=== PATIENT | female | born 1985 | race Caucasian/White ===

== ENCOUNTER 2019-10-26 21:21 | Observation (INO) | payer OTHER, SELFPAY ==
[2019-10-27 01:14] VITALS: BMI 32.9
--- NOTE | 2019-10-27 01:18 | OBADM ---
This patient, Alfonso Rojas, admitted to the OB room Labor/Delivery/Recovery 105 for observation. Patient/family oriented to hospital policies and general routines including ID bracelet, bed and alarms, visiting hours, pain management, procedures, bathroom and other care routines, personal items, smoking policy, room service/diet, and visiting hours. Patient/Family are encouraged to report perceived risks to care and to ask questions if they do not understand what they are told or what they should do.
--- NOTE | 2019-10-27 01:18 | PC.NURSE ---
See OBIX documentation for provider communication information.
--- NOTE | 2019-10-30 16:57 | PM.OBPNVD ---
OB - PN: Subj Subjective Date/time seen: 10/30/19 16:57 Patient comments: no complaints baby status: doing well OB - PN A/P Assessment and Plan (1) (normal spontaneous vaginal delivery): Code(s): O80 - Encounter for full-term uncomplicated delivery Status: Acute Plan Plan: discharge home Time Spent With Patient Time: Total time spent is greater than 50% in coordination of care (as documented) at patient's floor/unit and/or counseling patient:
--- NOTE | 2019-12-04 12:00 | PM.OBTRLD ---
OB - Triage/Final Diagnosis Final Diagnosis (1) Irregular contractions: Code(s): O62.2 - Other uterine inertia Status: Acute
== END 2019-10-27 01:14 | disposition home or self-care (01) ==
PROVIDERS: Admitting Provider Obstetrics & Gynecology; Visit Provider Obstetrics & Gynecology
DX: O62.2 Other uterine inertia (principal); Z3A.38 38 weeks gestation of pregnancy
CPT/HCPCS: G0378; G0379

== ENCOUNTER 2020-09-03 13:37 | Outpatient (RCR) | payer OTHER, SELFPAY ==
[2020-09-03 15:44] VITALS: BP 110/63; PULSE 82
== END 2020-09-15 08:39 | disposition home or self-care (01) ==
LOC: ANHOBOP 13:37
PROVIDERS: PCP Internal Medicine; Visit Provider Obstetrics & Gynecology Gynecology
DX: P59.9 Neonatal jaundice, unspecified (principal)
CPT/HCPCS: 59025

== ENCOUNTER 2020-09-14 04:54 | Inpatient (IN) | payer OTHER, SELFPAY ==
[2020-09-14] VITALS (60 sets, daily range): BP systolic 83–140; BP diastolic 49–100; PULSE 68–182; RESP 18–20; TEMP 36.3–37.1; O2SAT 68–100; BMI 34.2
--- NOTE | 2020-09-14 04:54 | LDADM ---
This patient, Alfonso Rojas, was admitted to Labor/Delivery/Recovery 104 on 09/14/20 at 04:54. Plans for labor, pain management and were discussed with patient. Patient/family oriented to hospital policies and general routines including ID bracelet, bed and alarms, visiting hours, pain management, procedures, bathroom and other care routines, personal items, smoking policy, room service/diet and guest tray routines, infant security routines, and visiting hours. Patient/Family are encouraged to report perceived risks to care and to ask questions if they do not understand what they are told or what they should do. See OBIX for further documentation.
[2020-09-14] MEDS: ONDANSETRON INJ 4 MG/2 ML VIAL IV PUSH (05:29)
[2020-09-14 05:33] LABS: Basophils Percent Auto 0.4 % (0.2-1.2); Eosinophils Absolute Auto 0.2 K/mm3 (0-0.3); Eosinophils Percent Auto 1.8 % (0-4.4); Hematocrit 35.7 % (37.0-47.0); Hemoglobin 12.3 g/dL (12.0-15.0); Immature Granulocyte Absolute 0.12 K/mm3 (0.00-0.031); Immature Granulocyte Percent A 1.2 % (0-0.5); Lymphocytes Absolute Auto 1.99 K/mm3 (0.9-3.2); Lymphocytes Percent Auto 19.8 % (18.3-44.2); Mean Corpuscular HGB Conc 34.5 g/dl (32-36); Mean Corpuscular Hemoglobin 31.5 pg (26-34); Mean Corpuscular Volume 91.3 fl (80-100); Mean Platelet Volume 9.4 fl (7.4-10.4); Monocytes Absolute Auto 0.5 K/mm3 (0.1-0.6); Monocytes Percent Auto 5.4 % (2.6-8.5); Neutrophils Absolute Auto 7.2 K/mm3 (1.3-6.7); Neutrophils Percent Auto 71.4 % (45.5-73.1); Platelet Count Result 247 k/mm3 (150-375); Red Blood Count 3.91 M/mm3 (4.2-5.4); Red Cell Distribution Width 13.5 % (11.5-14.5); White Blood Count 10.1 K/mm3 (4.5-10.0)
[2020-09-14] MEDS: OXYTOCIN 30 UNITS/NS 500 ML 30 UNITS/500 ML BAG IV CONT (05:47)
[2020-09-14] MEDS: LACTATED RINGERS 1,000 ML 125 ML IV CONT ×2 (05:47→08:02)
[2020-09-14 05:53] LABS: Glucose Point of Care 130 (65-105)
--- NOTE | 2020-09-14 07:02 | WPDANESEPP ---
Anes - Eval Pre Procedure Procedure: labor epidural Date/Time: 09/14/20 07:02 Surgeon: leland Preop Diagnosis: labor pain. IUP Pre Op Diagnosis: Induction of Labor Patient Data Age: 34 Gender: F Height: 1.63 m Weight: 90.4 kg Last Vital Signs Temp 37.1 C 09/14/20 05:15 Pulse 80 09/14/20 07:01 Resp 20 09/14/20 05:15 BP 99/51 L 09/14/20 07:01 Allergies Allergy/AdvReac Type Severity Reaction Status Date / Time No Known Allergies Allergy Mild Verified 08/31/20 12:40 Home Medications Medication Instructions Recorded Confirmed Type PNV cmb#95-ferrous fumarate-FA 1 tablet PO DAILY 10/17/19 09/14/20 History [] montelukast [Singulair] 20 mg PO DAILY 10/17/19 09/14/20 History albuterol sulfate [Proventil HFA] 2 puff INHALATION QIDRT PRN g 10/30/19 09/14/20 Rx cholecalciferol (vitamin D3) 125 mcg PO DAILY 08/31/20 09/14/20 History sertraline 150 mg PO DAILY 08/31/20 09/14/20 History insulin NPH isoph U-100 human 22 unit SUBCUT HS 09/14/20 09/14/20 History [Novolin N NPH U-100 Insulin] Laboratory Tests 09/14/20 09/14/20 09/14/20 05:23 05:23 05:31 WBC 10.1 K/mm3 H K/mm3 (4.5-10.0) RBC 3.91 M/mm3 L M/mm3 (4.2-5.4) Hgb 12.3 g/dL g/dL (12.0-15.0) Hct 35.7 % L % (37.0-47.0) MCV 91.3 fl fl (80-100) MCH 31.5 pg pg (26-34) MCHC 34.5 g/dl g/dl (32-36) RDW 13.5 % % (11.5-14.5) Plt Count 247 k/mm3 k/mm3 (150-375) MPV 9.4 fl fl (7.4-10.4) Immature Gran % (Auto) 1.2 % H % (0-0.5) Neut % (Auto) 71.4 % % (45.5-73.1) Lymph % (Auto) 19.8 % % (18.3-44.2) Logan % (Auto) 5.4 % % (2.6-8.5) Eos % (Auto) 1.8 % % (0-4.4) Baso % (Auto) 0.4 % % (0.2-1.2) Lymph # (Auto) 1.99 K/mm3 K/mm3 (0.9-3.2) Logan # (Auto) 0.5 K/mm3 K/mm3 (0.1-0.6) Eos # (Auto) 0.2 K/mm3 K/mm3 (0-0.3) Baso # (Auto) 0.0 K/mm3 K/mm3 (0.0-0.1) Abs Immat Gran (auto) 0.12 K/mm3 H K/mm3 (0.00-0.031) Absolute Neuts (auto) 7.2 K/mm3 H K/mm3 (1.3-6.7) Absolute Nucleated RBC 0.0 K/mm3 K/mm3 (0.0-0.012) Nucleated RBC % 0.0 % % (0.0-0.2) POC Capillary Glucose 130 mg/dl H mg/dl (65-105) RPR Pending Patient hx anesthesia problems: none Family hx anesthesia problems: none PMFSH Past Medical History Medical History Anemia Asthma Depression Gestational [-induced] hypertension without significant proteinuria, complicating childbirth Lumbago (normal spontaneous vaginal delivery) Family History Family History Mother Depression Grandparent Chronic obstructive pulmonary disease Hypertension Social History Social History Smoking status: Never smoker Second hand tobacco smoke exposure: No Substance use: never Gender identity (if verbalized by the patient): Female Spiritual care concerns: No Exam Day of Procedure 09/14/20 07:02 Patient weight: overweight Heart: regular rate and rhythm Lungs: normal air movement Airway: Mallampati scale class II Neurological: alert and oriented
--- NOTE | 2020-09-14 07:47 | WPDOBADMIT ---
Obstetrics - Admit Note Admission Note: record reviewed. No pertinent additions to the history and/or any subsequent changes in the physical findings that are not consistent with the expected course of the were found. Additions to the history and/or subsequent changes in the physical findings follow. None.Here for MIL at 39 wk with GDMA2. Cervix 450/-2 AROM with clear fluid. FHTs reactive
[2020-09-14 09:26] LABS: Glucose Point of Care 74 (65-105)
[2020-09-14 10:15] LABS: Rapid Plasma Reagin Non-Reactive (NonReactive)
--- NOTE | 2020-09-14 11:12 | PM.OBPRVD ---
OB - Delivery Note Procedure Delivery date: 09/14/20 events: Gestational Diabetes and Labor Induction Intrapartal events: None Induction method: AROM and per pitocin protocol Delivery monitor: external FHT and internal uterine Route of delivery: Laceration Description: None Specimen: Yes (placenta marginal insertion) Quantitative Blood Loss: 259 Anesthesia type: Epidural Disposition: floor Baby Date of : 09/14/20 Weeks of gestation at delivery: 39 gender: Female presentation: vertex Placenta delivery description: Manual Removal (cord marginal and was avulsing so manual assisted ) cord vessel description: 3 Vessels score one minute: 8 score five minutes: 9
--- NOTE | 2020-09-14 11:15 | PM.OBDSVD ---
DS: Admitting Diagnosis Admitting Diagnosis Admitting Diagnosis: Induction of Labor GDMA2 DS: Discharge Diagnosis Discharge Diagnosis (1) (normal spontaneous vaginal delivery): Code(s): O80 - Encounter for full-term uncomplicated delivery Status: Acute (2) 39 weeks gestation of : Code(s): Z3A.39 - 39 weeks gestation of Status: Acute (3) GDM, class A2: Code(s): O24.419 - Gestational diabetes mellitus in , unspecified control Status: Acute OB - DS: Summary OB Procedures : NST and Ultrasound OB Procedures Intrapartum: Spontaneous Vag Delivery OB Procedures: : None Peripartum Data Infant Delivery Method: Natural Vaginal Laceration Description: None complications: none Status at Discharge Functional status at discharge: independent ambulation Overall status at discharge: patient is progressing back to baseline Time Spent with Patient Time attestation: Total time spent providing and/or coordinating discharge services: DS: Data Data Completed and Pending Labs on day of discharge: Labs from last 24 hours 09/14/20 09/14/20 09/14/20 09:24 05:31 05:23 WBC RBC Hgb Hct MCV MCH MCHC RDW Plt Count MPV Immature Gran % (Auto) Neut % (Auto) Lymph % (Auto) [place] % (Auto) Eos % (Auto) Baso % (Auto) Lymph # (Auto) [place] # (Auto) Eos # (Auto) Baso # (Auto) Abs Immat Gran (auto) Absolute Neuts (auto) Absolute Nucleated RBC Nucleated RBC % POC Capillary Glucose 74 130 H RPR Blood Type A Positive Antibody Screen Negative 09/14/20 09/14/20 05:23 05:23 WBC 10.1 H RBC 3.91 L Hgb 12.3 Hct 35.7 L MCV 91.3 MCH 31.5 MCHC 34.5 RDW 13.5 Plt Count 247 MPV 9.4 Immature Gran % (Auto) 1.2 H Neut % (Auto) 71.4 Lymph % (Auto) 19.8 [place] % (Auto) 5.4 Eos % (Auto) 1.8 Baso % (Auto) 0.4 Lymph # (Auto) 1.99 [place] # (Auto) 0.5 Eos # (Auto) 0.2 Baso # (Auto) 0.0 Abs Immat Gran (auto) 0.12 H Absolute Neuts (auto) 7.2 H Absolute Nucleated RBC 0.0 Nucleated RBC % 0.0 POC Capillary Glucose RPR Non-reactive Blood Type Antibody Screen Discharge Plan Discharge Attending physician on discharge: Mildred Garcia Discharging Clinician: Mildred Garcia Anticipated Discharge Date/Time: 09/15/20 07:31 Patient Disposition: Home, Self-Care Activity: may shower and pelvic rest Diet: regular Patient Instructions: Antibiotic Form Stand Alone Forms: General Discharge Information Follow-up/Referrals: Mildred Garcia MD [Physician] - 6 Weeks Discharge Medications: New norethindrone (contraceptive) 0.35 mg tablet 0.35 mg PO DAILY Qty: 28 RF: 2 Continued montelukast [Singulair] 10 mg Tablet 20 mg PO DAILY RF: 0 PNV cmb#95-ferrous fumarate-FA [] 28 mg iron- 800 mcg Tablet 1 tablet PO DAILY RF: 0 albuterol sulfate [Proventil HFA] 90 mcg/actuation Hfa Aerosol Inhaler 2 puff inhalation QIDRT PRN (Reason: Shortness Of Breath) RF: 0 sertraline 100 mg Tablet 150 mg PO DAILY RF: 0 cholecalciferol (vitamin D3) 125 mcg (5,000 unit) Tablet 125 mcg PO DAILY RF: 0 Discontinued Novolin N NPH U-100 Insulin 100 unit/mL suspension 22 unit SUBCUT HS RF: 0 Date of admission: 09/14/20 04:54 Primary Care Provider: Tito,Marvin Adhikari Admitting Provider: Mildred Garcia Attending physician on admission: Mildred Garcia Condition: Stable
[2020-09-14] MEDS: OXYTOCIN 30 UNITS/NS 500 ML 30 UNITS/500 ML BAG 125 UNITS IV CONT (11:39)
[2020-09-14] MEDS: BENZOCAINE 20% AER SPR (*SP) 56 GM CAN 1 SPRAY TOPICAL (12:49)
[2020-09-14] MEDS: WITCH HAZEL 40 PADS 1 PAD TOPICAL (12:49)
[2020-09-14] MEDS: LORATADINE 10 MG TABLET PO (12:49)
[2020-09-14] MEDS: ACETAMINOPHEN 325 MG TABLET 650 MG PO (13:21)
--- NOTE | 2020-09-14 16:18 | OBPPTRN ---
1400 Patient transferred to post room #284 via W/C. Support person present. Oriented to unit, room, information board, rooming in, admission packet and security measures. Patient verbalizes understanding.
[2020-09-14] MEDS: IBUPROFEN 600 MG TABLET PO ×2 (16:56→23:18)
[2020-09-14] MEDS: DOCUSATE SODIUM 100 MG CAPSULE PO (16:56)
[2020-09-14] MEDS: MONTELUKAST SODIUM 10 MG TABLET PO (22:14)
[2020-09-15] MEDS: IBUPROFEN 600 MG TABLET PO ×2 (05:27→11:46)
[2020-09-15] MEDS: ACETAMINOPHEN 325 MG TABLET 650 MG PO ×2 (05:27→11:47)
[2020-09-15 05:35] LABS: Hematocrit 34.3 % (37.0-47.0); Hemoglobin 11.6 g/dL (12.0-15.0)
[2020-09-15 07:20] VITALS: BP 116/81; PULSE 79; RESP 16; TEMP 36.6; O2SAT 99
--- NOTE | 2020-09-15 07:30 | PM.OBPNVD ---
OB - PN: Subj Subjective Date/time seen: 09/15/20 07:30 Patient comments: no complaints and pain well controlled baby status: doing well and nursing well OB - PN: Obj Data Labs CBC & Chem 7: 09/15/20 04:42 Labs: Laboratory Results - last 24 hr 09/14/20 09/14/20 09/15/20 05:23 09:24 04:42 Hgb 11.6 L Hct 34.3 L POC Capillary Glucose 74 RPR Non-reactive OB - PN A/P Plan day: 1 Plan: routine care, discharge home, follow up 6 weeks and other (plans micronor until Mirena placed) Time Spent With Patient Time: Total time spent is greater than 50% in coordination of care (as documented) at patient's floor/unit and/or counseling patient: Exam : Bimanual exam- vagina & uterus: other (Uterus firm, nt @U)
[2020-09-15] MEDS: SERTRALINE HCL 50 MG TABLET 150 MG PO (08:30)
[2020-09-15] MEDS: DOCUSATE SODIUM 100 MG CAPSULE PO (08:30)
[2020-09-15] MEDS: MULTIVIT/MIN/PREN/FOL AC/IRON TABLET 1 TAB PO (08:30)
--- NOTE | 2020-09-15 11:23 | WPDANLDPN2 ---
Anes-Prog Note L&D Date/Time: 09/15/20 11:23 Comfortable throughout: labor and delivery Neuraxial method: epidural Neuro status: Neuro function grossly intact. Cardiovascular status: normal Respiratory status: normal Airway patency: baseline Mental status: baseline Post-Op hydration status: normal Vital Signs: Last Vital Signs Temp 36.6 C 09/15/20 07:20 Pulse 79 09/15/20 07:20 Resp 16 09/15/20 07:20 BP 116/81 09/15/20 07:20 Pulse Ox 99 09/15/20 07:20 Pain score (VAS): 3 Post-procedural complaints: none Patient feedback: Patient satisfied with anesthetic care.
[2020-09-17 10:47] VITALS: BP 135/88; PULSE 94; RESP 20; TEMP 36.7; O2SAT 99
== END 2020-09-15 15:08 | disposition home or self-care (01) | DRG 807 ==
LOC: ANHLDR 11:16 → ANHOB2 14:03
PROVIDERS: Admitting Provider Obstetrics & Gynecology Gynecology; PCP Internal Medicine; Visit Provider Obstetrics & Gynecology Gynecology
DX: O24.429 Gestational diabetes mellitus in childbirth, unspecified control (principal); Z37.0 Single live birth; Z3A.39 39 weeks gestation of pregnancy; O36.8330 Maternal care for abnormalities of the fetal heart rate or rhythm, third trimester, not applicable or unspecified; O99.02 Anemia complicating childbirth; D64.9 Anemia, unspecified; O99.52 Diseases of the respiratory system complicating childbirth; J45.909 Unspecified asthma, uncomplicated; O43.123 Velamentous insertion of umbilical cord, third trimester; O99.344 Other mental disorders complicating childbirth; F32.9 Major depressive disorder, single episode, unspecified
CPT/HCPCS: 36415; 85014; 85018; 85025; 86592; 86850; 86900; 86901; 88307; A9270; J2405; J2590; J2795; J7120

== ENCOUNTER 2022-06-08 14:56 | Emergency (ER) | payer BC, SELFPAY ==
[2022-06-08 15:04] VITALS: BP 128/83; PULSE 116; RESP 18; TEMP 37.9; O2SAT 100
--- NOTE | 2022-06-08 15:34 | ED.FEVER ---
HPI - Fever General Chief Complaint: Fever Stated Complaint: fever light headed aches and pains Time Seen by Provider: 06/08/22 15:37 Source: patient and RN notes reviewed Mode of arrival: ambulatory Limitations: no limitations History of Present Illness HPI Narrative: 36-year-old female presents concern for 4-day history of fever, body aches, chills, nausea, lightheadedness with occasional dizziness with deep inspiration, left ear pain, headache. She reports abdominal cramping without diarrhea or constipation. Reports normal bowel movements. She denies other abdominal pain. She reports she had some dysuria couple weeks ago that resolved after her menstrual period. She has been alternating Tylenol and ibuprofen which bring her fever from 101.4 down to 100.2 she denies sore throat, cough, shortness of breath, nasal congestion, rhinorrhea. She denies any rash, skin swelling or redness. She reports no other member of her family has similar symptoms, however several of her coworkers have COVID, she was at a concert on Sunday. She is taken to negative COVID test, on day 2 and 3 of illness. MD elicited complaint: fever Related Data Home Medications Medication Instructions Recorded Confirmed montelukast 10 mg tablet 20 mg PO DAILY 10/17/19 06/08/22 (Singulair) cholecalciferol (vitamin D3) 125 125 mcg PO DAILY 08/31/20 06/08/22 mcg (5,000 unit) tablet duloxetine 30 mg capsule,delayed 90 mg PO DAILY 06/08/22 06/08/22 release Allergies Allergy/AdvReac Type Severity Reaction Status Date / Time No Known Allergies Allergy Mild Verified 06/08/22 15:12 Review of Systems Review of Systems: CONSTITUTIONAL: Reports malaise, chills, fever. EYES: Denies visual changes, redness, or discharge. ENT: Denies rhinorrhea, congestion, sinus pain, and sore throat. Reports left ear pain CARDIOVASCULAR: Denies chest pain, palpitations, or edema. RESPIRATORY: Denies cough. Denies dyspnea. Reports midsternal chest discomfort with deep breathing GASTROINTESTINAL: Denies abdominal pain, nausea, vomiting, diarrhea. Reports abdominal cramping SKIN: Denies rash or itching. MUSCULOSKELETAL: Reports myalgia. NEUROLOGIC: Reports headache. All systems reviewed & are unremarkable except as noted in HPI and below PMFSH Past Medical History Medical History Anemia Asthma Depression Gestational [-induced] hypertension without significant proteinuria, complicating childbirth Lumbago (normal spontaneous vaginal delivery) Family History Family History Mother Depression Grandparent Chronic obstructive pulmonary disease Hypertension Social History Social History (System 12/05/21 @ 15:41 by Keesha Ashley) Smoking status: Former smoker Second hand tobacco smoke exposure: No Substance use: never Gender identity (if verbalized by the patient): Female Spiritual care concerns: No Comments At time of signature, agree with nursing past medical, surgical, social and family history. There is no relevant family history pertinent to the presenting complaint Exam Narrative: GENERAL: Nontoxic appearing and in no acute distress. HEAD: Normocephalic EYES: PERRLA, conjunctivae clear, sclera clear ENT: Nares clear, clear discharge. Mucous membranes moist. TM pearly dukes with sharp light reflex bilaterally; no tragal tenderness. Oropharynx not erythematous without lesions. Tonsils not enlarged and without exudate, no drooling, no hoarseness, no trismus, uvula midline. NECK: Supple. No lymphadenopathy CHEST: Clear to auscultation, breath sounds equal. No wheezing, rhonchi, rales, or stridor. No respiratory distress, speaks in full sentences. HEART: Fast rate and regular rhythm. No murmur heard. SKIN: Warm, dry, no rash. ABD: Normal bowel sounds in all 4 quadrants, soft, nontender. Left CVA tenderness NEURO: Aler
== END 2022-06-08 16:15 | disposition home or self-care (01) ==
PROVIDERS: Emergency Provider Nurse Practitioner; PCP Internal Medicine
DX: N12 Tubulo-interstitial nephritis, not specified as acute or chronic (principal); B96.20 Unspecified Escherichia coli [E. coli] as the cause of diseases classified elsewhere; J45.909 Unspecified asthma, uncomplicated; Z87.891 Personal history of nicotine dependence; Z20.822 Contact with and (suspected) exposure to COVID-19
CPT/HCPCS: 81003; 87077; 87086; 87186; 87426; 87804; 99213; C9803; G0463